=== PATIENT | male | born 1995 | race Hispanic/Latino ===

== ENCOUNTER 2020-02-15 20:40 | Emergency (ER) | payer OTHER ==
[~2020-02-15] VITALS: Ht 182.9 cm; Wt 92.3 kg
[2020-02-15] MEDS ORDERED: APAP325T4 PO (20:49)
[2020-02-15] MEDS ORDERED: GI COCKTAIL 50ML BTL(HYOSCYAMINE/MAALOX/LIDOCAINE VISCOUS)(1:3:1) As Ordered ONE (21:41)
[2020-02-15] MEDS ORDERED: NS 1,000 ML IV ONE (21:45)
[2020-02-15] MEDS ORDERED: GI COCKTAIL 50ML BTL(HYOSCYAMINE/MAALOX/LIDOCAINE VISCOUS)(1:3:1) PO ONE (21:45)
[2020-02-15 21:58] LABS: BASO % 0.3 % (0.0-1.0); EOS # 0.1 10^3/uL (0.0-0.5); EOS % 0.7 % (0.0-3.0); HEMATOCRIT 46.1 % (42.0-52.0); HEMOGLOBIN 15.8 g/dl (13.5-17.5); LYMPH # 2.6 10^3/uL (1.5-5.0); LYMPH % 26.9 % (24.0-44.0); MEAN CORPUSCULAR HGB CONC 34.3 g/dl (32.0-36.5); MEAN CORPUSCULAR VOLUME 90.6 fl (80.0-96.0); MONO # 1.6 10^3/uL (0.0-0.8); MONO % 17.1 % (0.0-5.0); NEUTROPHILS # 5.3 10^3/uL (1.5-8.5); NEUTROPHILS % 54.8 % (36.0-66.0); PLATELET COUNT, AUTOMATED 217 10^3/uL (150-450); RED BLOOD COUNT 5.09 10^6/uL (4.30-6.10); WHITE BLOOD COUNT 9.6 10^3/uL (4.0-10.0)
[2020-02-15 22:48] LABS: ALBUMIN 3.9 GM/DL (3.2-5.2); ALT/SGPT 132 U/L (12-78); BILIRUBIN,TOTAL 0.3 MG/DL (0.2-1.0); BLOOD UREA NITROGEN 14 MG/DL (7-18); C REACTIVE PROTEIN QUANTITATIV 0.84 MG/DL (0.00-0.30); CALCIUM LEVEL 9.2 MG/DL (8.5-10.1); CARBON DIOXIDE LEVEL 27 MEQ/L (21-32); CHLORIDE LEVEL 103 MEQ/L (98-107); CK-MB VALUE MASS 2.3 NG/ML (<3.6); CPK CREATINE PHOSPHOKINASE 1034 U/L (39-308); CREATININE FOR GFR 0.88 MG/DL (0.70-1.30); GLOMERULAR FILTRATION RATE > 60.0 (>60); GLUCOSE, FASTING 100 MG/DL (70-100); MB/CK RELATIVE INDEX 0.22 (< OR =4); POTASSIUM SERUM 3.3 MEQ/L (3.5-5.1); SODIUM LEVEL 139 MEQ/L (136-145); TOTAL PROTEIN 7.6 GM/DL (6.4-8.2); TROPONIN I < 0.02 NG/ML (< 0.10)
--- NOTE | 2020-02-15 23:55 | REPVR ---
PROCEDURE INFORMATION: Exam: US Abdomen Limited, Right Upper Quadrant Exam date and time: 02/15/2020 11:47 PM Age: 24 years old Clinical indication: Abdominal pain; Acute; Additional info: Elevated liver function tests, central epigastric pain TECHNIQUE: Imaging protocol: Real-time ultrasound of the abdomen with image documentation. Examination was focused on the right upper quadrant. COMPARISON: No relevant prior studies available. FINDINGS: Liver: The echogenicity of the liver is within normal limits. No liver lesion is identified from the images obtained. The contour of the liver is smooth. Gallbladder: Normal. No gallstones, masses, sonographic Bryant's sign, gallbladder wall thickening, or pericholecystic fluid. Common bile duct: No dilation (5 mm in diameter). No stones are identified in the imaged portion of the common bile duct. Pancreas: The visualized portion of the pancreas is unremarkable. Right kidney: The right kidney is normal in appearance and measures 13 cm in length. There is no renal cortical thinning. The renal cortical echogenicity is within normal limits. No renal lesion is seen. There is no hydronephrosis. No obvious stones are seen in the renal collecting system. Intraperitoneal space: No free fluid is seen from the images obtained. IMPRESSION: No sonographic abnormality seen in the right upper quadrant of the abdomen. Electronically signed by: Eliezer Mobley On 02/15/2020 23:54:59 PM
[2020-02-16] MEDS ORDERED: OMEP40CA97 PO (00:35)
[2020-02-16] MEDS ORDERED: CARA1TAB6 PO (00:35)
[2020-02-16] MEDS ORDERED: KETOROLAC 30 MG/ML 1ML VIAL IV ONE (00:45)
[2020-02-16 00:52] LABS: MONO SCRN NEGATIVE (NEGATIVE)
[2020-02-16 00:59] VITALS: BP 136/86
--- NOTE | 2020-02-16 10:50 | REP ---
CHEST: REASON: Coronavirus workup. COMPARISON: No priors. The technique utilized in obtaining the radiograph has magnified the cardiac silhouette and accentuated the interstitial markings. FINDINGS: The superior mediastinal structures are midline. The cardiac silhouette is unremarkable in size, shape, and position. The diaphragmatic surfaces of the lungs are regular, and the costophrenic angles are clear. The pulmonary kidd are clear. The imaged osseous structures are intact. IMPRESSION: There is no acute cardiopulmonary disease. Electronically Signed by Jos Arriola DO 02/16/2020 10:58 A
--- NOTE | 2020-02-17 18:46 | ED PDOC ---
Post-Departure Follow-Up Pt called ER and said he received a phone call from here, I did not call him, however saw that his results were back and that he was negative. It is of importance that patient was in his car at this time, and was not adhering to the stay at home orders he was previously given. Although his results are negative so that potential contact with persons is not a concern. [id number] 02/17/20 STEVEN MORALEZ PA-C February 17, 2020 18:46
[2020-02-18 10:41] LABS: HEPATITIS B SURFACE ANTIGEN NEGATIVE (NEGATIVE)
[2020-02-18 11:10] LABS: HEPATITIS B CORE ANTIBODY IGM NEGATIVE (NEGATIVE)
[2020-02-18 11:11] LABS: HEPATITIS A ANTIBODY IGM NEGATIVE (NEGATIVE)
== END 2020-02-16 01:02 | disposition home or self-care (01) ==
LOC: M ED 20:40
DX: R94.5 Abnormal results of liver function studies (principal); R74.8 Abnormal levels of other serum enzymes; R10.13 Epigastric pain; R53.1 Weakness; R50.9 Fever, unspecified; F17.200 Nicotine dependence, unspecified, uncomplicated; Z20.828 Contact with and (suspected) exposure to other viral communicable diseases
CPT/HCPCS: 71045; 76705; 80053; 82550; 82553; 83605; 84484; 85025; 86140; 86308; 86705; 86709; 86803; 87040; 87340; 87486; 87581; 87633; 87798; 96361; 96374; 99284; C9803; J1885; U0002

== ENCOUNTER → 2021-12-31 | Outpatient (CLI) | payer OTHER ==
[~2021-12-31] MED LIST: APAP325T4 PO; CARA1TAB6 PO; OMEP40CA4 PO
== END ==
LOC: M SLEEP HO 12-18 09:49
PROVIDERS: ATTEND Internal Medicine Cardiovascular Disease
DX: R06.83 Snoring (principal)

== ENCOUNTER 2022-03-25 23:48 | Emergency (ER) | payer OTHER ==
[~2022-03-25] VITALS: Ht 180.3 cm; Wt 92.7 kg
[2022-03-26] MEDS ORDERED: LIDOCAINE 1% MDV 20ML VIAL SC ONE (01:35)
[2022-03-26] MEDS ORDERED: DEBR6.5S4 OTIC (02:22)
[2022-03-26 02:31] VITALS: BP 123/59
== END 2022-03-26 02:40 | disposition home or self-care (01) ==
LOC: M ED 23:48
DX: B34.9 Viral infection, unspecified (principal); H61.22 Impacted cerumen, left ear